=== PATIENT | male | born 1945 | race Caucasian/White ===

== ENCOUNTER → 2017-02-07 | Outpatient (CLI) | payer MEDICARE, OTHER ==
[~2017-02-07] VITALS: Ht 190.5 cm; Wt 95.3 kg
[~2017-02-07] MED LIST: HYDR12CA PO; LISI-538 PO; NS 1,000 ML IV SCH
--- NOTE | 2017-02-07 14:47 | ROOR ---
Patient Name: Juanpablo Koo Procedure Date: 02/07/2017 2:27 PM Date of : 1945 Age: 71 Room: [facility] Gender: Male Note Status: Finalized Procedure: Colonoscopy to Cecum Indications: High risk colon cancer surveillance: Personal history of colonic polyps, High risk colon cancer surveillance: Personal history of adenoma with villous component, Last colonoscopy: 2010 Providers: Deni Zamora MD Referring MD: Dinora MAY DO Requesting Provider: Medicines: Monitored Anesthesia Care Complications: No immediate complications. Procedure: Pre-Anesthesia Assessment: - The heart rate, respiratory rate, oxygen saturations, blood pressure, adequacy of pulmonary ventilation, and response to care were monitored throughout the procedure. The Colonoscope was introduced through the anus and advanced to the cecum, identified by appendiceal orifice and ileocecal valve. The colonoscopy was performed without difficulty. The patient tolerated the procedure well. The quality of the bowel preparation was excellent. Findings: The perianal and digital rectal examinations were normal. Non-bleeding internal hemorrhoids were found during retroflexion. The hemorrhoids were small and Grade I (internal hemorrhoids that do not prolapse). Multiple small and large-mouthed diverticula were found in the recto-sigmoid colon, sigmoid colon and descending colon. The exam was otherwise without abnormality on direct and retroflexion views. Impression: - Non-bleeding internal hemorrhoids. - Diverticulosis in the recto-sigmoid colon, in the sigmoid colon and in the descending colon. - The examination was otherwise normal on direct and retroflexion views. - No specimens collected. - The exam was otherwise normal to the cecum. Recommendation: - Patient has a contact number available for emergencies. The signs and symptoms of potential delayed complications were discussed with the patient. Return to normal activities tomorrow. Written discharge instructions were provided to the patient. - High fiber diet. - Discharge patient to home. - Continue present medications. - Repeat colonoscopy in 5 years for surveillance. - Return to referring physician. - The findings and recommendations were discussed with the patient's family. Deni Zamora MD Deni Zamora MD 02/07/2017 2:46:43 PM This report has been signed electronically. Number of Addenda: 0 Note Initiated On: 02/07/2017 2:27 PM Estimated Blood Loss: Estimated blood loss: none.
[2017-02-07 15:05] VITALS: BP 156/78
== END ==
LOC: M OPP 13:40
PROVIDERS: ATTEND Internal Medicine Gastroenterology
DX: Z12.11 Encounter for screening for malignant neoplasm of colon (principal); Z86.010 Personal history of colon polyps; K64.0 First degree hemorrhoids; K57.30 Diverticulosis of large intestine without perforation or abscess without bleeding; Z79.899 Other long term (current) drug therapy
CPT/HCPCS: 99156; 99157; G0105

== ENCOUNTER → 2020-06-24 | Outpatient (REF) | payer MEDICARE, OTHER ==
[~2020-06-24] MED LIST changes: -NS 1,000 ML IV SCH
== END ==
LOC: M SMT 10:29
PROVIDERS: ATTEND Nurse Practitioner Family
DX: N39.0 Urinary tract infection, site not specified (principal)

== ENCOUNTER → 2020-08-05 | Outpatient (CLI) | payer MEDICARE, OTHER ==
--- NOTE | 2020-08-12 13:11 | REPPI ---
TRANSRECTAL PROSTATE ULTRASOUND WITH ULTRASOUND GUIDANCE FOR PROSTATE BIOPSY HISTORY: Elevated prostate-specific antigen (PSA). TECHNIQUE: Transrectal prostate ultrasound is performed. FINDINGS: Prostate measures 4.8 x 3.7 x 5.3 cm for a total volume of 49.4 mL. Echotexture is heterogeneous. There are a few scattered tiny cysts and calcifications. There is a hypoechoic nodule in the mid posterior gland measuring 6 x 9 x 5 mm. Seminal vesicles appear symmetrical. Ultrasound guidance was provided for Dr. Heller who performed ultrasound- guided biopsy of the prostate. [facility]
== END ==
LOC: M SMT PRO 08:30
PROVIDERS: ATTEND Urology
DX: C61 Malignant neoplasm of prostate (principal)
CPT/HCPCS: 55700; 76872; G0416

== ENCOUNTER → 2020-11-10 | Outpatient (REF) | payer MEDICARE, OTHER | LOC: M PLALAB 14:01 | PROVIDERS: ATTEND Urology | DX: C61 Malignant neoplasm of prostate (principal) ==

== ENCOUNTER → 2021-02-09 | Outpatient (REF) | payer MEDICARE, OTHER ==
[~2021-02-09] MED LIST changes: -LISI-538 PO; +LISI20TA33 PO
== END ==
LOC: M PLALAB 13:34 → M SMT 13:34
PROVIDERS: ATTEND Urology
DX: C61 Malignant neoplasm of prostate (principal)

== ENCOUNTER → 2021-03-03 | Outpatient (CLI) | payer MEDICARE, OTHER ==
--- NOTE | 2021-03-03 13:11 | REPPI ---
INDICATION: elevated PSA. Prostate cancer. COMPARISON: None. TECHNIQUE: Sonographic guidance. Transrectal prostate sonography.. FINDINGS: Glandular dimensions are measured at 4.3 x 3.8 x 5.4 cm with a calculated glandular volume of 45.0 ml. Transrectal sonographic guidance is provided to Dr. Heller who performed trans rectal ultrasound guided needle biopsy procedure. IMPRESSION: Transrectal prostate sonographic measurements and ultrasound guidance as above. <Electronically signed by Jorge Vasquez > 03/03/21 [id number]
== END ==
LOC: M SMT PRO 11:25
PROVIDERS: ATTEND Urology
DX: C61 Malignant neoplasm of prostate (principal)
CPT/HCPCS: 55700; 76942; G0416

== ENCOUNTER → 2021-05-28 | Outpatient (CLI) | payer MEDICARE, OTHER ==
[2021-05-28 10:37] LABS: BASO % 0.4 % (0.0-1.0); EOS # 0.2 10^3/uL (0.0-0.5); EOS % 3.2 % (0.0-3.0); HEMOGLOBIN 12.4 g/dl (13.5-17.5); LYMPH # 0.9 10^3/uL (1.5-5.0); LYMPH % 18.9 % (24.0-44.0); MEAN CORPUSCULAR HEMOGLOBIN 30.6 pg (27.0-33.0); MEAN CORPUSCULAR HGB CONC 33.5 g/dl (32.0-36.5); MEAN CORPUSCULAR VOLUME 91.4 fl (80.0-96.0); MONO # 0.5 10^3/uL (0.0-0.8); MONO % 10.1 % (2.0-8.0); NEUTROPHILS # 3.3 10^3/uL (1.5-8.5); NEUTROPHILS % 66.6 % (36.0-66.0); PLATELET COUNT, AUTOMATED 141 10^3/uL (150-450); RED BLOOD COUNT 4.05 10^6/uL (4.30-6.10)
[2021-05-28 11:18] LABS: ALBUMIN 3.8 GM/DL (3.2-5.2); ALT/SGPT 26 U/L (12-78); BILIRUBIN,TOTAL 0.7 MG/DL (0.2-1.0); BLOOD UREA NITROGEN 21 MG/DL (7-18); CALCIUM LEVEL 8.9 MG/DL (8.8-10.2); CARBON DIOXIDE LEVEL 29 MEQ/L (21-32); CHLORIDE LEVEL 103 MEQ/L (98-107); CHOLESTEROL LEVEL 208 MG/DL (<200); CHOLESTEROL RISK RATIO 3.354 (<5); CREATININE FOR GFR 1.01 MG/DL (0.70-1.30); FREE T4 0.89 NG/DL (0.76-1.46); GLOMERULAR FILTRATION RATE > 60.0 (>42); GLUCOSE, FASTING 101 MG/DL (70-100); HDL CHOLESTEROL 62 MG/DL (>40); LDL CHOLESTEROL 126 MG/DL (<100); NON-HDL-C 146 MG/DL; POTASSIUM SERUM 4.3 MEQ/L (3.5-5.1); SODIUM LEVEL 138 MEQ/L (136-145); TOTAL PROTEIN 6.4 GM/DL (6.4-8.2); TRIGLYCERIDES LEVEL 101 MG/DL (<150)
[2021-05-29 23:08] LABS: PSA % FREE 13.9 % (.); PSA FREE 1.32 ng/mL; PSA TOTAL 9.5 ng/mL (0.0-4.0)
== END ==
LOC: M PLALAB 08:34
PROVIDERS: ATTEND Family Medicine
DX: I10 Essential (primary) hypertension (principal); Z79.899 Other long term (current) drug therapy

== ENCOUNTER → 2021-09-15 | Outpatient (CLI) | payer MEDICARE, OTHER | LOC: M PLALAB 14:23 | PROVIDERS: ATTEND Urology | DX: C61 Malignant neoplasm of prostate (principal) ==

== ENCOUNTER → 2021-11-03 | Outpatient (CLI) | payer MEDICARE, OTHER | LOC: M PLALAB 10:51 | PROVIDERS: ATTEND Urology | DX: C61 Malignant neoplasm of prostate (principal) ==

== ENCOUNTER → 2021-11-20 | Outpatient (CLI) | payer MEDICARE, OTHER ==
[~2021-11-20] MED LIST changes: +PROHANCE 279.3MG/ML 15ML VIAL As Ordered ONE; +PROHANCE 279.3MG/ML 5ML VIAL As Ordered ONE
== END ==
LOC: M PLARAD 07:42 → M RAD 08:53
PROVIDERS: ATTEND Urology
DX: R97.20 Elevated prostate specific antigen [PSA] (principal)
CPT/HCPCS: 72197; A9576

== ENCOUNTER → 2021-11-24 | Outpatient (REF) | payer MEDICARE, OTHER ==
[~2021-11-24] MED LIST changes: -PROHANCE 279.3MG/ML 15ML VIAL As Ordered ONE; -PROHANCE 279.3MG/ML 5ML VIAL As Ordered ONE
== END ==
LOC: M SMT PRO 11:01
PROVIDERS: ATTEND Urology
DX: C61 Malignant neoplasm of prostate (principal)
CPT/HCPCS: 55700; 76942; G0416

== ENCOUNTER → 2021-12-04 | Outpatient (CLI) | payer MEDICARE, OTHER ==
[2021-12-04 15:41] LABS: BASO % 0.2 % (0.0-1.0); EOS # 0.1 10^3/uL (0.0-0.5); EOS % 2.9 % (0.0-3.0); HEMATOCRIT 37.3 % (42.0-52.0); HEMOGLOBIN 12.5 g/dl (13.5-17.5); LYMPH # 1.4 10^3/uL (1.5-5.0); LYMPH % 27.7 % (24.0-44.0); MEAN CORPUSCULAR HEMOGLOBIN 29.8 pg (27.0-33.0); MEAN CORPUSCULAR HGB CONC 33.5 g/dl (32.0-36.5); MONO # 0.4 10^3/uL (0.0-0.8); MONO % 7.1 % (2.0-8.0); NEUTROPHILS % 61.1 % (36.0-66.0); PLATELET COUNT, AUTOMATED 170 10^3/uL (150-450); RED BLOOD COUNT 4.19 10^6/uL (4.30-6.10); WHITE BLOOD COUNT 4.9 10^3/uL (4.0-10.0)
[2021-12-04 16:09] LABS: PERCENT SATURATION 25.3 % (19.7-50.0)
[2021-12-04 16:17] LABS: FOLATE 12.4 NG/ML
== END ==
LOC: M PLALAB 13:35
PROVIDERS: ATTEND Physician Assistant
DX: D64.9 Anemia, unspecified (principal); Z79.899 Other long term (current) drug therapy

== ENCOUNTER → 2022-02-15 | Outpatient (CLI) | payer MEDICARE, OTHER ==
[2022-02-15 13:12] LABS: HEMATOCRIT 39.8 % (42.0-52.0); HEMOGLOBIN 13.9 g/dl (13.5-17.5); MEAN CORPUSCULAR HEMOGLOBIN 30.8 pg (27.0-33.0); MEAN CORPUSCULAR HGB CONC 34.9 g/dl (32.0-36.5); MEAN CORPUSCULAR VOLUME 88.1 fl (80.0-96.0); PLATELET COUNT, AUTOMATED 133 10^3/uL (150-450); RED BLOOD COUNT 4.52 10^6/uL (4.30-6.10); WHITE BLOOD COUNT 4.9 10^3/uL (4.0-10.0)
[2022-02-15 13:23] LABS: INR 0.98; PROTHROMBIN TIME 13.4 SECONDS (12.7-14.5)
[2022-02-15 13:24] LABS: PARTIAL THROMBOPLASTIN TIME 32.5 SECONDS (25.9-37.0)
[2022-02-15 13:51] LABS: BLOOD UREA NITROGEN 16 MG/DL (7-18); CALCIUM LEVEL 9.3 MG/DL (8.8-10.2); CARBON DIOXIDE LEVEL 30 MEQ/L (21-32); CHLORIDE LEVEL 104 MEQ/L (98-107); CREATININE FOR GFR 0.81 MG/DL (0.70-1.30); GLOMERULAR FILTRATION RATE > 60.0 (>42); GLUCOSE, FASTING 88 MG/DL (70-100); POTASSIUM SERUM 4.7 MEQ/L (3.5-5.1); SODIUM LEVEL 139 MEQ/L (136-145)
== END ==
LOC: M PLALAB 11:42
PROVIDERS: ATTEND Urology
DX: C61 Malignant neoplasm of prostate (principal); Z79.01 Long term (current) use of anticoagulants

== ENCOUNTER → 2022-02-19 | Outpatient (CLI) | payer MEDICARE, OTHER | LOC: M LABSMTC 09:13 | PROVIDERS: ATTEND Anesthesiology | DX: Z01.812 Encounter for preprocedural laboratory examination (principal); Z20.822 Contact with and (suspected) exposure to COVID-19 ==

== ENCOUNTER 2022-02-24 06:03 | Inpatient (IN) | payer MEDICARE, OTHER ==
[2022-02-24] VITALS (11 sets, daily range): BP systolic 119–154; BP diastolic 62–76
[~2022-02-24] VITALS: Ht 190.5 cm; Wt 93.9 kg
[~2022-02-24 06:03] MED LIST changes: +HEPARIN SOD (PORCINE) 5000UNITS/ML 1ML VIAL/SYRINGE SQ ONE; +LR 1,000 ML IV ONE; +ceFAZolin SOD 2 GM in IV 1 EA IV ONE
[2022-02-24] MEDS ORDERED: ACETAMINOPHEN 1000MG 100ML IV BTL (OFIRMEV) (J0131 PER 10MG) As Ordered ONE (07:09)
[2022-02-24] MEDS ORDERED: dexameTHASONE 4 MG/ML 1ML VIAL (J1100 PER 1MG) As Ordered ONE (07:09)
[2022-02-24] MEDS ORDERED: ONDANSETRON 4MG/2ML VIAL As Ordered ONE (07:09)
[2022-02-24] MEDS ORDERED: propofoL 200 MG/20 ML VIAL As Ordered ONE (07:09)
[2022-02-24] MEDS ORDERED: SUGAMMADEX SODIUM 500 MG/5 ML VIAL (BRIDION) As Ordered ONE (07:09)
[2022-02-24] MEDS ORDERED: ROCURONIUM BROMIDE 50 MG/5 ML VIAL As Ordered ONE ×2 (07:09→08:32)
[2022-02-24] MEDS ORDERED: KETAMINE INJ 500 MG/5 ML VIAL As Ordered ONE (07:10)
[2022-02-24] MEDS ORDERED: HYDROmorphone HCL 2MG/ML 1ML VIAL As Ordered ONE (07:10)
[2022-02-24] MEDS ORDERED: MIDAZOLAM INJ 2MG/2ML VIAL (J2250 PER 1MG) As Ordered ONE (07:11)
[2022-02-24] MEDS ORDERED: fentaNYL 100 MCG/2 ML INJECTION As Ordered ONE (07:11)
[2022-02-24] MEDS ORDERED: BUPIVACAINE HCL 0.25% 30ML VIAL As Ordered ONE (07:12)
[2022-02-24] MEDS ORDERED: LIDOCAINE 1% SDV 30ML VIAL As Ordered ONE (07:12)
[2022-02-24] MEDS ORDERED: LIDOCAINE 5% OINT 30GM TUBE As Ordered ONE (07:15)
[2022-02-24] MEDS ORDERED: LIDOCAINE 2% 100MG/5ML SDV (FOR ANES.) As Ordered ONE (07:18)
[2022-02-24] MEDS ORDERED: PERCOCET 5MG/325MG TAB PO PRN ×3 (07:30→12:50)
[2022-02-24] MEDS ORDERED: ACETAMINOPHEN TAB 650MG DOSE (2X325MG) PO PRN (07:30)
[2022-02-24] MEDS ORDERED: ONDANSETRON 4MG/2ML VIAL IV PRN ×2 (07:30→12:50)
[2022-02-24] MEDS ORDERED: ePHEDrine SULFATE 25 MG/5 ML(5MG/ML) SYRINGE As Ordered ONE (08:13)
[2022-02-24 12:19] LABS: HEMATOCRIT 38.2 % (42.0-52.0); HEMOGLOBIN 13.3 g/dl (13.5-17.5); MEAN CORPUSCULAR HEMOGLOBIN 30.2 pg (27.0-33.0); MEAN CORPUSCULAR HGB CONC 34.8 g/dl (32.0-36.5); MEAN CORPUSCULAR VOLUME 86.6 fl (80.0-96.0); PLATELET COUNT, AUTOMATED 138 10^3/uL (150-450); RED BLOOD COUNT 4.41 10^6/uL (4.30-6.10)
[2022-02-24 12:49] LABS: CALCIUM LEVEL 8.6 MG/DL (8.8-10.2); CREATININE FOR GFR 1.32 MG/DL (0.70-1.30); GLOMERULAR FILTRATION RATE 56.3 (>42); POTASSIUM SERUM 4.8 MEQ/L (3.5-5.1)
[2022-02-24] MEDS ORDERED: LR 1,000 ML IV SCH (12:50)
[2022-02-24] MEDS ORDERED: METOCLOPRAMIDE INJ 10MG/2ML VIAL (J2765 PER 1) IV PRN (12:50)
[2022-02-24] MEDS ORDERED: fentaNYL 100 MCG/2 ML INJECTION IV PRN (12:50)
[2022-02-24] MEDS ORDERED: VITA500T41 PO (14:03)
[2022-02-24] MEDS ORDERED: LISI40TA4 PO (14:03)
[2022-02-24] MEDS ORDERED: HOME MED LIST COMPLETE! XX SCH (14:05)
[2022-02-24] MEDS: DOCUSATE SODIUM 100MG CAPSULE PO SCH ×2 (16:04→20:28)
[2022-02-24] MEDS: HEPARIN SOD (PORCINE) 5000UNITS/ML 1ML VIAL/SYRINGE SC SCH ×2 (16:14→20:29)
[2022-02-24] MEDS: ceFAZolin SOD 1 GM in D5W MINI-BAG PLUS 50 ML IV SCH (16:14)
[2022-02-24] MEDS: NS 1,000 ML IV SCH (16:14)
[2022-02-25] MEDS: ceFAZolin SOD 1 GM in D5W MINI-BAG PLUS 50 ML IV SCH (00:21)
[2022-02-25 02:00] VITALS: BP 130/68
[2022-02-25] MEDS: NS 1,000 ML IV SCH (04:49)
[2022-02-25 05:11] LABS: HEMATOCRIT 35.2 % (42.0-52.0); HEMOGLOBIN 12.2 g/dl (13.5-17.5); MEAN CORPUSCULAR HEMOGLOBIN 30.3 pg (27.0-33.0); MEAN CORPUSCULAR HGB CONC 34.7 g/dl (32.0-36.5); MEAN CORPUSCULAR VOLUME 87.6 fl (80.0-96.0); PLATELET COUNT, AUTOMATED 137 10^3/uL (150-450); RED BLOOD COUNT 4.02 10^6/uL (4.30-6.10); WHITE BLOOD COUNT 7.3 10^3/uL (4.0-10.0)
[2022-02-25 05:30] LABS: BLOOD UREA NITROGEN 16 MG/DL (7-18); CALCIUM LEVEL 8.4 MG/DL (8.8-10.2); CARBON DIOXIDE LEVEL 33 MEQ/L (21-32); CHLORIDE LEVEL 106 MEQ/L (98-107); CREATININE FOR GFR 0.94 MG/DL (0.70-1.30); GLOMERULAR FILTRATION RATE > 60.0 (>42); GLUCOSE, FASTING 98 MG/DL (70-100); POTASSIUM SERUM 4.4 MEQ/L (3.5-5.1); SODIUM LEVEL 139 MEQ/L (136-145)
[2022-02-25 06:00] VITALS: BP 131/68
[2022-02-25] MEDS: HEPARIN SOD (PORCINE) 5000UNITS/ML 1ML VIAL/SYRINGE SC SCH ×2 (06:06→13:33)
[2022-02-25] MEDS: DOCUSATE SODIUM 100MG CAPSULE PO SCH (08:42)
[2022-02-25 10:00] VITALS: BP 131/68
[2022-02-25 14:00] VITALS: BP 131/68
[2022-02-25 14:09] LABS: CREATININE BF 0.8 MG/DL (NOT ESTABLISHED); SOURCE, BODY FLUID CREATININE PERITONEAL
[2022-02-25] MEDS ORDERED: BACT800T5 PO (15:02)
[2022-02-25] MEDS ORDERED: PERCOCET PO (15:02)
[2022-02-25] MEDS ORDERED: COLA100C5 PO (15:02)
== END 2022-02-25 16:00 | disposition home or self-care (01) | DRG 708 ==
LOC: M OR 06:03 → M MS5PR 13:20
PROVIDERS: ADMIT Urology; ATTEND Urology
PROC: 07BC4ZZ Excision of Pelvis Lymphatic, Percutaneous Endoscopic Approach (ICD-10-PCS; 2022-02-24)
PROC: 8E0W4CZ Robotic Assisted Procedure of Trunk Region, Percutaneous Endoscopic Approach (ICD-10-PCS; 2022-02-24)
PROC: 0VT04ZZ Resection of Prostate, Percutaneous Endoscopic Approach (ICD-10-PCS; principal; 2022-02-24 07:30)
DX: C61 Malignant neoplasm of prostate (principal)

== ENCOUNTER → 2022-03-19 | Outpatient (CLI) | payer MEDICARE, OTHER ==
[~2022-03-19] MED LIST changes: +BACT800T5 PO; +COLA100C5 PO; -HEPARIN SOD (PORCINE) 5000UNITS/ML 1ML VIAL/SYRINGE SQ ONE; +LISI40TA4 PO; -LR 1,000 ML IV ONE; +PERCOCET PO; +VITA500T41 PO; -ceFAZolin SOD 2 GM in IV 1 EA IV ONE
== END ==
LOC: M PLALAB 14:40
PROVIDERS: ATTEND Urology
DX: C61 Malignant neoplasm of prostate (principal)

== ENCOUNTER 2022-04-17 12:53 | Inpatient (IN) | payer MEDICARE, OTHER ==
[~2022-04-17] VITALS: Ht 190.5 cm; Wt 102.2 kg
[2022-04-17] MEDS ORDERED: NS 1,000 ML IV ONE (13:35)
[2022-04-17] MEDS ORDERED: ONDANSETRON 4MG 2ML VIAL IV ONE (13:35)
[2022-04-17] MEDS ORDERED: METOCLOPRAMIDE INJ 10MG/2ML VIAL (J2765 PER 1) IV ONE (13:50)
[2022-04-17 14:25] LABS: HEMATOCRIT 34.9 % (42.0-52.0); HEMOGLOBIN 12.4 g/dl (13.5-17.5); MEAN CORPUSCULAR HEMOGLOBIN 31.1 pg (27.0-33.0); MEAN CORPUSCULAR HGB CONC 35.5 g/dl (32.0-36.5); MEAN CORPUSCULAR VOLUME 87.5 fl (80.0-96.0); PLATELET COUNT, AUTOMATED 100 10^3/uL (150-450); RED BLOOD COUNT 3.99 10^6/uL (4.30-6.10); WHITE BLOOD COUNT 24.8 10^3/uL (4.0-10.0)
[2022-04-17] MEDS ORDERED: NS 1,800 ML in IV 1 EA IV ONE (14:45)
[2022-04-17 14:54] LABS: ALBUMIN 2.8 GM/DL (3.2-5.2); BILIRUBIN,DIRECT 0.3 MG/DL (0.0-0.2); BILIRUBIN,TOTAL 1.1 MG/DL (0.2-1.0); CALCIUM LEVEL 7.6 MG/DL (8.8-10.2); CREATININE FOR GFR 2.24 MG/DL (0.70-1.30); EOSINOPHILS 1 % (0-3); GLOMERULAR FILTRATION RATE 30.6 (>42); LYMPHOCYTES 1 % (16-44); METAMYELOCYTES 3 % (0-0); MONOCYTES 3 % (0-5); MYELOCYTES 1 % (0-0); NEUTROPHILS 63 % (28-66); POTASSIUM SERUM 3.9 MEQ/L (3.5-5.1); TOTAL PROTEIN 5.6 GM/DL (6.4-8.2)
[2022-04-17 14:55] LABS: GIANT PLATELETS 1+; MICROCYTOSIS 1+; OVALOCYTES 1+; PLATELET ESTIMATE DECREASED (NORMAL)
[2022-04-17] MEDS ORDERED: cefTRIAXone SOD 2 GM in D5W MINI-BAG PLUS 50 ML IV ONE (15:30)
[2022-04-17 16:27] LABS: RSV AMPLIFICATION NEGATIVE (NEGATIVE)
[2022-04-17] MEDS ORDERED: ACETAMINOPHEN 325 MG TAB PO ONE (17:00)
[2022-04-17] MEDS ORDERED: VITA500T40 PO (17:15)
[2022-04-17] MEDS ORDERED: HOME MED LIST COMPLETE! XX SCH (17:15)
[2022-04-17] MEDS ORDERED: ONDANSETRON 4MG 2ML VIAL IV PRN (17:30)
[2022-04-17] MEDS ORDERED: ACETAMINOPHEN TAB 650MG DOSE (2X325MG) PO PRN (17:30)
[2022-04-17] MEDS ORDERED: VANCOMYCIN HCL 1,000 MG, VIAL MATE ADAPTER 1 EACH in NS 250 ML IV ONE (18:00)
[2022-04-17] MEDS: NS 1,000 ML IV SCH (18:50)
[2022-04-17 22:34] VITALS: BP 129/67
[2022-04-18] MEDS: NS 1,000 ML IV SCH ×4 (04:00→21:45)
[2022-04-18 06:00] VITALS: BP 99/62
[2022-04-18 07:08] LABS: HEMATOCRIT 30.2 % (42.0-52.0); HEMOGLOBIN 10.5 g/dl (13.5-17.5); MEAN CORPUSCULAR HEMOGLOBIN 30.2 pg (27.0-33.0); MEAN CORPUSCULAR HGB CONC 34.8 g/dl (32.0-36.5); MEAN CORPUSCULAR VOLUME 86.8 fl (80.0-96.0); RED BLOOD COUNT 3.48 10^6/uL (4.30-6.10); WHITE BLOOD COUNT 13.6 10^3/uL (4.0-10.0)
[2022-04-18] MEDS ORDERED: NS 1,000 ML IV ONE (07:25)
[2022-04-18 07:33] LABS: ALBUMIN 2.2 GM/DL (3.2-5.2); BILIRUBIN,TOTAL 0.8 MG/DL (0.2-1.0); CALCIUM LEVEL 7.3 MG/DL (8.8-10.2); CREATININE FOR GFR 1.9 MG/DL (0.70-1.30); POTASSIUM SERUM 3.8 MEQ/L (3.5-5.1); TOTAL PROTEIN 5.2 GM/DL (6.4-8.2)
[2022-04-18 07:35] VITALS: BP 122/78
[2022-04-18] MEDS ORDERED: ONDANSETRON 4MG 2ML VIAL IV ONE (07:35)
[2022-04-18 07:45] LABS: PLATELET COUNT, AUTOMATED 57 10^3/uL (150-450)
[2022-04-18 07:49] LABS: EOSINOPHILS 2 % (0-3); METAMYELOCYTES 2 % (0-0); MONOCYTES 3 % (0-5); MYELOCYTES 3 % (0-0); NEUTROPHILS 68 % (28-66)
[2022-04-18 07:50] LABS: PLATELET ESTIMATE DECREASED (NORMAL)
[2022-04-18 07:51] LABS: MICROCYTOSIS 1+; OVALOCYTES 1+
[2022-04-18] MEDS ORDERED: VANCOMYCIN HCL 1,000 MG, VIAL MATE ADAPTER 1 EACH in NS 250 ML IV SCH (08:00)
[2022-04-18] MEDS: cefTRIAXone SOD 1 GM in D5W MINI-BAG PLUS 50 ML IV SCH (08:46)
[2022-04-18] MEDS ORDERED: LEVO750T13 PO (09:20)
[2022-04-18] MEDS ORDERED: NORV5TAB PO (09:20)
[2022-04-18] MEDS ORDERED: BACITAB PO (09:20)
[2022-04-18] MEDS ORDERED: SELF1KIT MC (09:20)
[2022-04-18 21:12] LABS: HEMATOCRIT 29.4 % (42.0-52.0); HEMOGLOBIN 10.4 g/dl (13.5-17.5); MEAN CORPUSCULAR HEMOGLOBIN 30.8 pg (27.0-33.0); MEAN CORPUSCULAR HGB CONC 35.4 g/dl (32.0-36.5); RED BLOOD COUNT 3.38 10^6/uL (4.30-6.10); WHITE BLOOD COUNT 11.7 10^3/uL (4.0-10.0)
[2022-04-18 21:17] LABS: PLATELET COUNT, AUTOMATED 49 10^3/uL (150-450)
[2022-04-18 21:39] LABS: CALCIUM LEVEL 7.4 MG/DL (8.8-10.2); CREATININE FOR GFR 1.83 MG/DL (0.70-1.30); GLOMERULAR FILTRATION RATE 38.6 (>42); POTASSIUM SERUM 3.6 MEQ/L (3.5-5.1)
[2022-04-18 21:49] LABS: LYMPHOCYTES 2 % (16-44); METAMYELOCYTES 1 % (0-0); MONOCYTES 2 % (0-5); MYELOCYTES 1 % (0-0); NEUTROPHILS 82 % (28-66)
[2022-04-18 21:50] LABS: PLATELET ESTIMATE DECREASED (NORMAL)
[2022-04-18 22:00] VITALS: BP 126/70
[2022-04-19] MEDS: NS 1,000 ML IV SCH ×2 (04:25→14:13)
[2022-04-19 06:15] LABS: HEMATOCRIT 30.7 % (42.0-52.0); HEMOGLOBIN 10.7 g/dl (13.5-17.5); MEAN CORPUSCULAR HEMOGLOBIN 30.6 pg (27.0-33.0); MEAN CORPUSCULAR HGB CONC 34.9 g/dl (32.0-36.5); MEAN CORPUSCULAR VOLUME 87.7 fl (80.0-96.0); PLATELET COUNT, AUTOMATED 50 10^3/uL (150-450)
[2022-04-19 06:39] LABS: BILIRUBIN,TOTAL 0.8 MG/DL (0.2-1.0); CALCIUM LEVEL 7.5 MG/DL (8.8-10.2); CREATININE FOR GFR 1.68 MG/DL (0.70-1.30); GLOMERULAR FILTRATION RATE 42.6 (>42); POTASSIUM SERUM 4.1 MEQ/L (3.5-5.1); TOTAL PROTEIN 4.8 GM/DL (6.4-8.2)
[2022-04-19 06:50] LABS: MONOCYTES 1 % (0-5); NEUTROPHILS 91 % (28-66); PLATELET ESTIMATE DECREASED (NORMAL)
[2022-04-19] MEDS ORDERED: MULTIVITAMINS/MINERALS THERAP 1 TAB PO SCH (09:00)
[2022-04-19] MEDS ORDERED: FOLIC ACID 1 MG TAB PO SCH (09:00)
[2022-04-19] MEDS ORDERED: THIAMINE 100 MG TAB PO SCH (09:00)
[2022-04-19] MEDS: cefTRIAXone SOD 1 GM in D5W MINI-BAG PLUS 50 ML IV SCH (09:00)
[2022-04-19] MEDS ORDERED: NS 1,000 ML IV ONE ×3 (09:10→11:15)
[2022-04-19] MEDS ORDERED: LORazepam 2 MG/ML VIAL IV STA (11:12)
[2022-04-19 11:13] VITALS: BP 186/104
[2022-04-19] MEDS ORDERED: PROMETHAZINE 25MG/ML 1ML VIAL IV ONE (11:15)
[2022-04-19] MEDS ORDERED: MORPHINE 2 MG/ML 1ML VIAL IV ONE (11:15)
[2022-04-19] MEDS ORDERED: PIPERACILLIN/TAZOBACTAM SOD 4.5 GM in D5W MINI-BAG PLUS 50 ML IV ONE (11:15)
[2022-04-19] MEDS ORDERED: cloNIDine 0.1MG TABLET PO ONE (11:20)
[2022-04-19] MEDS ORDERED: LORazepam 2 MG TAB PO PRN (11:25)
[2022-04-19] MEDS ORDERED: atenoloL 50 MG TAB PO ONE (11:35)
[2022-04-19 11:39] LABS: HEMATOCRIT 35.3 % (42.0-52.0); HEMOGLOBIN 11.7 g/dl (13.5-17.5); MEAN CORPUSCULAR HEMOGLOBIN 29.8 pg (27.0-33.0); MEAN CORPUSCULAR HGB CONC 33.1 g/dl (32.0-36.5); MEAN CORPUSCULAR VOLUME 90.1 fl (80.0-96.0); RED BLOOD COUNT 3.92 10^6/uL (4.30-6.10); WHITE BLOOD COUNT 9.3 10^3/uL (4.0-10.0)
[2022-04-19 11:41] LABS: PLATELET COUNT, AUTOMATED 71 10^3/uL (150-450)
[2022-04-19 11:46] VITALS: BP 132/90
[2022-04-19 12:01] LABS: ERYTHROCYTE SEDIMENTATION RATE 63 mm/hr (0-20)
[2022-04-19] MEDS: NITROGLYCERIN 2% OINT 1 GM *U/D* PKT TOP SCH ×2 (12:02→18:00)
[2022-04-19 12:04] LABS: CK-MB VALUE MASS 2.4 NG/ML (<3.6); MB/CK RELATIVE INDEX 0.98 (< OR =4)
[2022-04-19 12:14] LABS: LYMPHOCYTES 8 % (16-44); NEUTROPHILS 89 % (28-66); PLATELET ESTIMATE DECREASED (NORMAL)
[2022-04-19] MEDS ORDERED: ACETAMINOPHEN TAB 650MG DOSE (2X325MG) PO ONE (13:05)
[2022-04-19 13:30] LABS: ALBUMIN 2.3 GM/DL (3.2-5.2); BILIRUBIN,TOTAL 0.9 MG/DL (0.2-1.0); CALCIUM LEVEL 7.9 MG/DL (8.8-10.2); CREATININE FOR GFR 1.72 MG/DL (0.70-1.30); GLOMERULAR FILTRATION RATE 41.5 (>42); TOTAL PROTEIN 5.4 GM/DL (6.4-8.2)
[2022-04-19] MEDS ORDERED: VANCOMYCIN HCL 1,000 MG, VIAL MATE ADAPTER 1 EACH in NS 250 ML IV SCH (13:50)
[2022-04-19 14:00] VITALS: BP 140/90
[2022-04-19 14:44] LABS: CALCIUM LEVEL 7.2 MG/DL (8.8-10.2); CREATININE FOR GFR 1.74 MG/DL (0.70-1.30); GLOMERULAR FILTRATION RATE 40.9 (>42); POTASSIUM SERUM 3.6 MEQ/L (3.5-5.1)
[2022-04-19] MEDS ORDERED: VANCOMYCIN HCL 750 MG, VIAL MATE ADAPTER 1 EACH in NS 250 ML IV SCH ×2 (15:00→16:00)
[2022-04-19 15:20] VITALS: BP 105/54
[2022-04-19] MEDS: PIPERACILLIN/TAZOBACTAM SOD 3.375 GM in D5W MINI-BAG PLUS 50 ML IV SCH (18:43)
[2022-04-19 20:49] VITALS: BP 107/66
[2022-04-19] MEDS: atenoloL 50 MG TAB PO SCH (21:00)
[2022-04-19] MEDS: APIXABAN 5 MG TAB (ELIQUIS) PO SCH (21:04)
[2022-04-20] VITALS (11 sets, daily range): BP systolic 108–131; BP diastolic 58–82
[2022-04-20] MEDS: PIPERACILLIN/TAZOBACTAM SOD 3.375 GM in D5W MINI-BAG PLUS 50 ML IV SCH ×3 (01:40→13:31)
[2022-04-20] MEDS: NS 1,000 ML IV SCH ×3 (04:39→19:10)
[2022-04-20] MEDS: NITROGLYCERIN 2% OINT 1 GM *U/D* PKT TOP SCH ×5 (05:42→23:01)
[2022-04-20 07:58] LABS: BASO # 0.1 10^3/uL (0.0-0.2); BASO % 0.7 % (0.0-1.0); EOS % 0.2 % (0.0-3.0); HEMATOCRIT 29.6 % (42.0-52.0); LYMPH # 0.6 10^3/uL (1.5-5.0); LYMPH % 4.7 % (24.0-44.0); MEAN CORPUSCULAR HEMOGLOBIN 30.5 pg (27.0-33.0); MEAN CORPUSCULAR HGB CONC 33.8 g/dl (32.0-36.5); MEAN CORPUSCULAR VOLUME 90.2 fl (80.0-96.0); MONO # 0.5 10^3/uL (0.0-0.8); MONO % 3.8 % (2.0-8.0); NEUTROPHILS # 10.7 10^3/uL (1.5-8.5); NEUTROPHILS % 87.3 % (36.0-66.0); PLATELET COUNT, AUTOMATED 46 10^3/uL (150-450); RED BLOOD COUNT 3.28 10^6/uL (4.30-6.10); WHITE BLOOD COUNT 12.2 10^3/uL (4.0-10.0)
[2022-04-20] MEDS: APIXABAN 5 MG TAB (ELIQUIS) PO SCH (08:21)
[2022-04-20] MEDS: atenoloL 50 MG TAB PO SCH ×2 (08:31→21:08)
[2022-04-20 08:41] LABS: ALBUMIN 1.8 GM/DL (3.2-5.2); BILIRUBIN,TOTAL 0.8 MG/DL (0.2-1.0); CALCIUM LEVEL 7.3 MG/DL (8.8-10.2); CREATININE FOR GFR 1.88 MG/DL (0.70-1.30); GLOMERULAR FILTRATION RATE 37.4 (>42); POTASSIUM SERUM 3.8 MEQ/L (3.5-5.1); TOTAL PROTEIN 4.5 GM/DL (6.4-8.2)
[2022-04-20] MEDS ORDERED: LevoFLOXacin 750 MG TABLET PO SCH (09:00)
[2022-04-20] MEDS ORDERED: VANCOMYCIN HCL 750 MG, VIAL MATE ADAPTER 1 EACH in NS 250 ML IV SCH (11:00)
[2022-04-20] MEDS ORDERED: VANCOMYCIN HCL 500 MG in D5W MINI-BAG PLUS 100 ML IV SCH (12:00)
[2022-04-20] MEDS ORDERED: ISOVUE-300 61% 50ML VIAL As Ordered ONE (17:08)
[2022-04-20] MEDS ORDERED: LIDOCAINE 2% 100MG/5ML SDV (FOR ANES.) As Ordered ONE (17:40)
[2022-04-20] MEDS ORDERED: MIDAZOLAM INJ 2MG/2ML VIAL (J2250 PER 1MG) As Ordered ONE (17:41)
[2022-04-20] MEDS ORDERED: fentaNYL 100 MCG/2 ML INJECTION As Ordered ONE (17:41)
[2022-04-20] MEDS ORDERED: propofoL 200 MG/20 ML VIAL As Ordered ONE (17:41)
[2022-04-20] MEDS ORDERED: cefTRIAXone SOD 2 GM in D5W MINI-BAG PLUS 50 ML IV SCH (18:00)
[2022-04-20] MEDS ORDERED: LIDOCAINE 2% 5ML JELLY UROJET As Ordered ONE (18:04)
[2022-04-20] MEDS ORDERED: cefTRIAXone SOD 1GM VIAL (J0696 PER 250MG) As Ordered ONE (18:22)
[2022-04-21] VITALS: BP 104/65
[2022-04-21 04:00] VITALS: BP 112/70
[2022-04-21] MEDS: NITROGLYCERIN 2% OINT 1 GM *U/D* PKT TOP SCH (05:07)
[2022-04-21 05:38] LABS: BASO # 0.1 10^3/uL (0.0-0.2); BASO % 0.6 % (0.0-1.0); EOS % 0.2 % (0.0-3.0); HEMATOCRIT 29.7 % (42.0-52.0); HEMOGLOBIN 10.1 g/dl (13.5-17.5); LYMPH # 0.6 10^3/uL (1.5-5.0); LYMPH % 5.7 % (24.0-44.0); MEAN CORPUSCULAR HEMOGLOBIN 30.7 pg (27.0-33.0); MEAN CORPUSCULAR VOLUME 90.3 fl (80.0-96.0); MONO # 0.7 10^3/uL (0.0-0.8); MONO % 6.2 % (2.0-8.0); NEUTROPHILS % 83.7 % (36.0-66.0); RED BLOOD COUNT 3.29 10^6/uL (4.30-6.10); WHITE BLOOD COUNT 10.7 10^3/uL (4.0-10.0)
[2022-04-21 05:39] LABS: PLATELET COUNT, AUTOMATED 49 10^3/uL (150-450)
[2022-04-21] MEDS: NS 1,000 ML IV SCH (05:39)
[2022-04-21 05:54] LABS: ALBUMIN 1.7 GM/DL (3.2-5.2); BILIRUBIN,TOTAL 0.5 MG/DL (0.2-1.0); CALCIUM LEVEL 7.7 MG/DL (8.8-10.2); CREATININE FOR GFR 1.94 MG/DL (0.70-1.30); GLOMERULAR FILTRATION RATE 36.1 (>42); POTASSIUM SERUM 3.4 MEQ/L (3.5-5.1); TOTAL PROTEIN 4.7 GM/DL (6.4-8.2)
[2022-04-21] MEDS ORDERED: POTASSIUM CHLORIDE 10MEQ SR TABLET PO ONE (07:35)
[2022-04-21 08:00] VITALS: BP 135/75
[2022-04-21 08:28] VITALS: BP 135/75
[2022-04-21] MEDS: atenoloL 50 MG TAB PO SCH (08:28)
[2022-04-21] MEDS ORDERED: FUROSEMIDE 20MG/2ML VIAL (J1940) IV ONE (08:50)
[2022-04-21] MEDS ORDERED: CEFD300C41 PO (09:03)
[2022-04-21] MEDS ORDERED: ASPI81TA26 PO (09:03)
[2022-04-21] MEDS ORDERED: ATEN50TA2 PO (09:03)
[2022-05-07] MEDS ORDERED: LISI40TA4 PO (12:50)
== END 2022-04-21 11:26 | disposition home or self-care (01) | DRG 854 ==
LOC: M ED 12:53 → M ED INP 17:23 → M MSPAV 22:34 → M PCU 04-19 15:04
PROVIDERS: ADMIT General Practice; ATTEND Internal Medicine Nephrology
PROC: 0T778DZ Dilation of Left Ureter with Intraluminal Device, Via Natural or Artificial Opening Endoscopic (ICD-10-PCS; principal; 2022-04-20 14:48)
DX: A41.59 Other Gram-negative sepsis (principal); N17.9 Acute kidney failure, unspecified; N39.0 Urinary tract infection, site not specified; N13.6 Pyonephrosis; E87.1 Hypo-osmolality and hyponatremia; E87.2 Acidosis; R65.20 Severe sepsis without septic shock; D64.9 Anemia, unspecified; I16.0 Hypertensive urgency; I48.91 Unspecified atrial fibrillation; B96.1 Klebsiella pneumoniae [K. pneumoniae] as the cause of diseases classified elsewhere; D69.6 Thrombocytopenia, unspecified; R74.01 Elevation of levels of liver transaminase levels; I10 Essential (primary) hypertension; Z85.46 Personal history of malignant neoplasm of prostate; Z79.899 Other long term (current) drug therapy

== ENCOUNTER → 2022-05-06 | Outpatient (CLI) | payer MEDICARE, OTHER ==
[~2022-05-06] MED LIST changes: +ASPI81TA26 PO; +ATEN50TA2 PO; +BACITAB PO; +CEFD300C41 PO; +LEVO750T13 PO; +NORV5TAB PO; +SELF1KIT MC; +VITA500T40 PO
[2022-05-06 16:51] LABS: HEMATOCRIT 28.2 % (42.0-52.0); HEMOGLOBIN 9.2 g/dl (13.5-17.5); MEAN CORPUSCULAR HEMOGLOBIN 29.7 pg (27.0-33.0); MEAN CORPUSCULAR HGB CONC 32.6 g/dl (32.0-36.5); PLATELET COUNT, AUTOMATED 146 10^3/uL (150-450)
[2022-05-06 17:06] LABS: APPEARANCE, URINE HAZY (CLEAR); BACTERIA, URINE AUTO 1+ (NEGATIVE); BILIRUBIN, URINE AUTO NEGATIVE (NEGATIVE); BLOOD, URINE BLOOD 3+ (NEGATIVE); COLOR, URINE YELLOW (YELLOW); GLUCOSE, URINE (UA) AUTO NEGATIVE (NEGATIVE); KETONE, URINE AUTO NEGATIVE (NEGATIVE); LEUKOCYTE ESTERASE, URINE AUTO 3+ (NEGATIVE); MUCUS, URINE SMALL (NEGATIVE); NITRITE, URINE AUTO NEGATIVE (NEGATIVE); PROTEIN, URINE AUTO 1+ mg/dL (NEGATIVE); RBC, URINE AUTO 33 /HPF (0-3); SQUAMOUS EPITHELIAL CELL UR AU 0 /HPF (0-6); UROBILINOGEN, URINE AUTO 0.2 mg/dL (0.0-2.0); WBC, URINE AUTO 121 /HPF (0-3)
[2022-05-06 17:06] LABS: BLOOD UREA NITROGEN 15 MG/DL (7-18); CALCIUM LEVEL 8.9 MG/DL (8.8-10.2); CARBON DIOXIDE LEVEL 34 MEQ/L (21-32); CHLORIDE LEVEL 105 MEQ/L (98-107); CREATININE FOR GFR 1.24 MG/DL (0.70-1.30); GLOMERULAR FILTRATION RATE > 60.0 (>42); GLUCOSE, FASTING 91 MG/DL (70-100); POTASSIUM SERUM 4.2 MEQ/L (3.5-5.1); SODIUM LEVEL 139 MEQ/L (136-145)
[2022-05-06 17:23] LABS: INR 1.06; PROTHROMBIN TIME 14.2 SECONDS (12.7-14.5)
[2022-05-06 17:24] LABS: PARTIAL THROMBOPLASTIN TIME 36.5 SECONDS (25.9-37.0)
== END ==
LOC: M PLALAB 13:15
PROVIDERS: ATTEND Nurse Practitioner Women's Health
DX: N20.0 Calculus of kidney (principal); Z79.01 Long term (current) use of anticoagulants

== ENCOUNTER → 2022-05-11 | Outpatient (CLI) | payer MEDICARE, OTHER | LOC: M LABSMTC 09:24 | PROVIDERS: ATTEND Anesthesiology | DX: Z01.812 Encounter for preprocedural laboratory examination (principal) ==

== ENCOUNTER 2022-05-13 10:41 | Day surgery (SDC) | payer MEDICARE, OTHER ==
[~2022-05-13] VITALS: Ht 190.5 cm; Wt 89.4 kg
[~2022-05-13 10:41] MED LIST changes: +ceFAZolin SOD 2 GM in IV 1 EA IV ONE
[2022-05-13] MEDS ORDERED: LR 1,000 ML IV SCH ×2 (10:50→16:30)
[2022-05-13] MEDS ORDERED: ISOVUE-300 61% 50ML VIAL As Ordered ONE (14:35)
[2022-05-13] MEDS ORDERED: fentaNYL 100 MCG/2 ML INJECTION As Ordered ONE (14:37)
[2022-05-13] MEDS ORDERED: dexameTHASONE 4 MG/ML 1ML VIAL (J1100 PER 1MG) As Ordered ONE (14:37)
[2022-05-13] MEDS ORDERED: ONDANSETRON 4MG 2ML VIAL As Ordered ONE (14:37)
[2022-05-13] MEDS ORDERED: propofoL 200 MG/20 ML VIAL As Ordered ONE (14:37)
[2022-05-13] MEDS ORDERED: LIDOCAINE 2% INJ 100 MG/5 ML SYRINGE As Ordered ONE (14:38)
[2022-05-13] MEDS ORDERED: ROCURONIUM BROMIDE 50 MG/5 ML VIAL As Ordered ONE (14:38)
[2022-05-13] MEDS ORDERED: ACETAMINOPHEN 1000MG 100ML IV BTL (OFIRMEV) (J0131 PER 10MG) As Ordered ONE (15:11)
[2022-05-13] MEDS ORDERED: HYDROMORPHONE HCL 0.5 MG/ 0.5 ML SYRINGE (J1170 PER 1) IV PRN (16:30)
[2022-05-13] MEDS ORDERED: oxyCODONE 5MG TAB PO PRN (16:30)
[2022-05-13] MEDS ORDERED: fentaNYL 100 MCG/2 ML INJECTION IV PRN (16:30)
[2022-05-13] MEDS ORDERED: ONDANSETRON 4MG 2ML VIAL IV PRN (16:30)
[2022-05-13 17:25] VITALS: BP 169/83
[2022-05-13] MEDS ORDERED: PERCOCET 5MG/325MG TAB PO PRN (18:30)
[2022-05-20 14:08] LABS: Size 7x5 mm (.); Uric Acid 100 % (.)
== END 2022-05-13 17:30 | disposition home or self-care (01) ==
LOC: M SDC 10:41
PROVIDERS: ATTEND Urology
DX: N20.2 Calculus of kidney with calculus of ureter (principal); Q62.5 Duplication of ureter; C61 Malignant neoplasm of prostate; I10 Essential (primary) hypertension; E78.5 Hyperlipidemia, unspecified; E07.9 Disorder of thyroid, unspecified; I48.0 Paroxysmal atrial fibrillation; N17.9 Acute kidney failure, unspecified; D51.9 Vitamin B12 deficiency anemia, unspecified; D50.9 Iron deficiency anemia, unspecified; D69.6 Thrombocytopenia, unspecified; Z87.442 Personal history of urinary calculi; Z87.440 Personal history of urinary (tract) infections
CPT/HCPCS: 52356; 74420; 82365; 93005; C1769; C1894; C2617; J0131; J0690; J1100; J2405; J3010; Q9967

== ENCOUNTER → 2022-05-21 | Outpatient (CLI) | payer MEDICARE, OTHER ==
[~2022-05-21] MED LIST changes: -ceFAZolin SOD 2 GM in IV 1 EA IV ONE
== END ==
LOC: M PLALAB 10:43
PROVIDERS: ATTEND Urology
DX: C61 Malignant neoplasm of prostate (principal)

== ENCOUNTER → 2022-08-25 | Outpatient (CLI) | payer MEDICARE, OTHER ==
[~2022-08-25] MED LIST changes: +LEVO1TAB40 PO; -LEVO750T13 PO
== END ==
LOC: M PLALAB 10:47
PROVIDERS: ATTEND Urology
DX: C61 Malignant neoplasm of prostate (principal)

== ENCOUNTER → 2022-10-04 | Outpatient (CLI) | payer MEDICARE, OTHER | LOC: M PLALAB 10:48 | PROVIDERS: ATTEND Urology | DX: C61 Malignant neoplasm of prostate (principal) ==

== ENCOUNTER → 2022-11-04 | Outpatient (CLI) | payer MEDICARE, OTHER ==
[~2022-11-04] MED LIST changes: +ASPI-226; +ATEN50TA2
== END ==
LOC: M ONCR 12:39
PROVIDERS: ATTEND General Practice
DX: C61 Malignant neoplasm of prostate (principal); R32 Unspecified urinary incontinence; Z80.9 Family history of malignant neoplasm, unspecified; Z79.899 Other long term (current) drug therapy

== ENCOUNTER → 2022-11-22 | Outpatient (CLI) | payer MEDICARE, OTHER | LOC: M PLALAB 13:11 | PROVIDERS: ATTEND Urology | DX: C61 Malignant neoplasm of prostate (principal) ==

== ENCOUNTER → 2023-01-11 | Outpatient (CLI) | payer MEDICARE, OTHER ==
[~2023-01-11] MED LIST changes: +AMLO1TAB24 PO; +ASPI-226 PO
== END ==
LOC: M LABSMTC 07:40
PROVIDERS: ATTEND Anesthesiology
DX: Z01.818 Encounter for other preprocedural examination (principal); Z11.52 Encounter for screening for COVID-19

== ENCOUNTER → 2023-01-12 | Day surgery (SDC) | payer MEDICARE, OTHER ==
[~2023-01-12] VITALS: Ht 190.5 cm; Wt 93.8 kg
[~2023-01-12] MED LIST changes: +LIDOCAINE 2% 100MG/5ML SDV (FOR ANES.) As Ordered ONE; +NS 1,000 ML IV ONE; +propofoL 500 MG/50 ML VIAL As Ordered ONE
[2023-01-12 08:53] VITALS: BP 137/79
== END | disposition home or self-care (01) ==
LOC: M OPP 06:43
PROVIDERS: ATTEND Internal Medicine Gastroenterology
DX: Z12.11 Encounter for screening for malignant neoplasm of colon (principal); Z86.010 Personal history of colon polyps; D12.6 Benign neoplasm of colon, unspecified; K64.0 First degree hemorrhoids; K57.30 Diverticulosis of large intestine without perforation or abscess without bleeding; I10 Essential (primary) hypertension; Z79.899 Other long term (current) drug therapy; Z87.442 Personal history of urinary calculi; Z90.79 Acquired absence of other genital organ(s)

== ENCOUNTER → 2023-02-04 | Outpatient (RCR) | payer MEDICARE, OTHER ==
[~2023-02-04] MED LIST changes: -LIDOCAINE 2% 100MG/5ML SDV (FOR ANES.) As Ordered ONE; -NS 1,000 ML IV ONE; -propofoL 500 MG/50 ML VIAL As Ordered ONE
== END ==
LOC: M ONCR 01-06 13:45
PROVIDERS: ATTEND General Practice
DX: C61 Malignant neoplasm of prostate (principal)

== ENCOUNTER 2023-03-04 09:24 | Outpatient (RCR) | payer MEDICARE, OTHER | END 2023-03-06 | LOC: M ONCR 09:24 | PROVIDERS: ATTEND General Practice | DX: C61 Malignant neoplasm of prostate (principal) ==

== ENCOUNTER 2023-03-18 09:21 | Outpatient (RCR) | payer MEDICARE, OTHER | END 2023-04-06 | LOC: M ONCR 09:21 | PROVIDERS: ATTEND General Practice | DX: C61 Malignant neoplasm of prostate (principal) ==

== ENCOUNTER → 2023-06-07 | Outpatient (CLI) | payer MEDICARE, OTHER ==
[2023-06-07 16:40] LABS: BASO % 0.3 % (0.0-1.0); EOS # 0.1 10^3/uL (0.0-0.5); EOS % 1.8 % (0.0-3.0); HEMOGLOBIN 11.6 g/dl (13.5-17.5); LYMPH # 0.4 10^3/uL (1.5-5.0); LYMPH % 12.1 % (24.0-44.0); MEAN CORPUSCULAR HEMOGLOBIN 31.2 pg (27.0-33.0); MEAN CORPUSCULAR HGB CONC 34.1 g/dl (32.0-36.5); MEAN CORPUSCULAR VOLUME 91.4 fl (80.0-96.0); MONO # 0.3 10^3/uL (0.0-0.8); MONO % 8.3 % (2.0-8.0); NEUTROPHILS # 2.6 10^3/uL (1.5-8.5); NEUTROPHILS % 76.3 % (36.0-66.0); PLATELET COUNT, AUTOMATED 116 10^3/uL (150-450); RED BLOOD COUNT 3.72 10^6/uL (4.30-6.10); WHITE BLOOD COUNT 3.4 10^3/uL (4.0-10.0)
[2023-06-07 16:42] LABS: ALBUMIN 3.7 G/DL (3.2-5.2); ALKALINE PHOSPHATASE 89 U/L (46-116); ALT/SGPT 11 U/L (7.0-40); AST/SGOT 9 U/L (<34); BILIRUBIN,TOTAL 0.7 MG/DL (0.3-1.2); BLOOD UREA NITROGEN 20 MG/DL (9-23); CALCIUM LEVEL 8.5 MG/DL (8.3-10.6); CARBON DIOXIDE LEVEL 26 MMOL/L (20-31); CHLORIDE LEVEL 107 MMOL/L (98-107); CHOLESTEROL LEVEL 176 MG/DL (<200); CHOLESTEROL RISK RATIO 2.72 (<5); FERRITIN 342.5 NG/ML (10.5-307.3); GLOMERULAR FILTRATION RATE > 60.0 (>42); GLUCOSE, FASTING 88 MG/DL (74-106); HDL CHOLESTEROL 64.7 MG/DL (>40); IRON (FE) 57 UG/DL (65-175); LDL CHOLESTEROL 99.1 MG/DL (<100); NON-HDL-C 111.3 MG/DL; PERCENT SATURATION 22.9 % (19.7-50.0); SODIUM LEVEL 142 MMOL/L (136-145); TOTAL IRON BINDING CAPACITY 249 UG/DL (250-425); TOTAL PROTEIN 5.9 G/DL (5.7-8.2); TRIGLYCERIDES LEVEL 61 MG/DL (<150)
[2023-06-07 16:44] LABS: FOLATE 16.4 NG/ML (>5.4); VITAMIN B12 LEVEL 239 PG/ML (211-911)
== END ==
LOC: M PLALAB 11:58
PROVIDERS: ATTEND Family Medicine
DX: D61.818 Other pancytopenia (principal); E78.5 Hyperlipidemia, unspecified; D50.9 Iron deficiency anemia, unspecified; I10 Essential (primary) hypertension

== ENCOUNTER → 2023-06-21 | Outpatient (CLI) | payer MEDICARE, OTHER | LOC: M ONCR 09:16 | PROVIDERS: ATTEND General Practice | DX: C61 Malignant neoplasm of prostate (principal); Z92.3 Personal history of irradiation; N39.3 Stress incontinence (female) (male); Z71.2 Person consulting for explanation of examination or test findings; Z79.899 Other long term (current) drug therapy | CPT/HCPCS: 36415; 84153; G0463 ==

== ENCOUNTER → 2023-07-19 | Outpatient (CLI) | payer MEDICARE, OTHER ==
[~2023-07-19] MED LIST changes: +MYRB50TA
== END ==
LOC: M RAD 08:04
PROVIDERS: ATTEND Internal Medicine Hematology & Oncology
DX: D61.818 Other pancytopenia (principal)

== ENCOUNTER → 2023-09-20 | Outpatient (CLI) | payer MEDICARE, OTHER ==
[~2023-09-20] MED LIST changes: -CEFD300C41 PO; +CEFD300C42 PO; +LIDOCAINE 1% MDV 20ML VIAL As Ordered ONE
[2023-09-20 08:08] VITALS: TEMP 97.3
[2023-09-20 08:35] LABS: BASO % 0.3 % (0.0-1.0); EOS # 0.1 10^3/uL (0.0-0.5); EOS % 2.8 % (0.0-3.0); HEMATOCRIT 34.8 % (42.0-52.0); LYMPH # 0.5 10^3/uL (1.5-5.0); LYMPH % 15.4 % (24.0-44.0); MEAN CORPUSCULAR HEMOGLOBIN 30.6 pg (27.0-33.0); MEAN CORPUSCULAR HGB CONC 34.5 g/dl (32.0-36.5); MEAN CORPUSCULAR VOLUME 88.8 fl (80.0-96.0); MONO # 0.2 10^3/uL (0.0-0.8); MONO % 7.5 % (2.0-8.0); NEUTROPHILS # 2.3 10^3/uL (1.5-8.5); NEUTROPHILS % 72.1 % (36.0-66.0); PLATELET COUNT, AUTOMATED 110 10^3/uL (150-450); RED BLOOD COUNT 3.92 10^6/uL (4.30-6.10); WHITE BLOOD COUNT 3.2 10^3/uL (4.0-10.0)
[2023-09-20 08:48] LABS: INR 1.01
[2023-09-20 09:20] VITALS: BP 160/92; O2SAT 99
== END ==
LOC: M IRPRO 08:00
PROVIDERS: ATTEND Internal Medicine Hematology & Oncology
DX: D61.818 Other pancytopenia (principal)

== ENCOUNTER → 2023-12-12 | Outpatient (CLI) | payer MEDICARE, OTHER ==
[~2023-12-12] MED LIST changes: +CEFD1CAP9 PO; -CEFD300C42 PO; -LIDOCAINE 1% MDV 20ML VIAL As Ordered ONE
[2023-12-12 14:43] LABS: BASO % 0.6 % (0.0-1.0); EOS % 1.2 % (0.0-3.0); HEMATOCRIT 36.3 % (42.0-52.0); LYMPH # 0.5 10^3/uL (1.5-5.0); LYMPH % 15.1 % (24.0-44.0); MEAN CORPUSCULAR HEMOGLOBIN 30.2 pg (27.0-33.0); MEAN CORPUSCULAR HGB CONC 33.1 g/dl (32.0-36.5); MEAN CORPUSCULAR VOLUME 91.2 fl (80.0-96.0); MONO # 0.3 10^3/uL (0.0-0.8); NEUTROPHILS # 2.5 10^3/uL (1.5-8.5); NEUTROPHILS % 73.6 % (36.0-66.0); PLATELET COUNT, AUTOMATED 109 10^3/uL (150-450); RED BLOOD COUNT 3.98 10^6/uL (4.30-6.10); WHITE BLOOD COUNT 3.4 10^3/uL (4.0-10.0)
[2023-12-12 15:07] LABS: ALBUMIN 3.7 G/DL (3.2-5.2); ALKALINE PHOSPHATASE 93 U/L (46-116); ALT/SGPT 17 U/L (7.0-40); AST/SGOT 13 U/L (<34); BILIRUBIN,TOTAL 0.8 MG/DL (0.3-1.2); BLOOD UREA NITROGEN 21 MG/DL (9-23); CALCIUM LEVEL 8.7 MG/DL (8.3-10.6); CARBON DIOXIDE LEVEL 29 MMOL/L (20-31); CHLORIDE LEVEL 107 MMOL/L (98-107); CHOLESTEROL LEVEL 169 MG/DL (<200); CHOLESTEROL RISK RATIO 2.85 (<5); CREATININE FOR GFR 1.23 MG/DL (0.70-1.30); GLOMERULAR FILTRATION RATE > 60.0 (>42); GLUCOSE, FASTING 96 MG/DL (74-106); HDL CHOLESTEROL 59.1 MG/DL (>40); IRON (FE) 86 UG/DL (65-175); LDL CHOLESTEROL 93.5 MG/DL (<100); NON-HDL-C 109.9 MG/DL; PERCENT SATURATION 33.2 % (19.7-50.0); POTASSIUM SERUM 4.8 MMOL/L (3.5-5.1); SODIUM LEVEL 141 MMOL/L (136-145); THYROID STIMULATING HORMONE 2.737 uIU/ML (0.55-4.78); TOTAL IRON BINDING CAPACITY 259 UG/DL (250-425); TOTAL PROTEIN 6.1 G/DL (5.7-8.2); TRIGLYCERIDES LEVEL 82 MG/DL (<150)
[2023-12-12 15:08] LABS: FERRITIN 318.1 NG/ML (10.5-307.3); FOLATE 14.3 NG/ML (>5.4)
[2023-12-12 15:09] LABS: FREE T4 1.12 NG/DL (0.89-1.76); VITAMIN B12 LEVEL 340 PG/ML (211-911)
[2023-12-13 12:09] LABS: PSA TOTAL <0.1 ng/mL (0.0-4.0)
== END ==
LOC: M PLALAB 10:18
PROVIDERS: ATTEND Family Medicine
DX: I10 Essential (primary) hypertension (principal); D51.9 Vitamin B12 deficiency anemia, unspecified; C61 Malignant neoplasm of prostate; R97.20 Elevated prostate specific antigen [PSA]

== ENCOUNTER → 2023-12-20 | Outpatient (CLI) | payer MEDICARE, OTHER | LOC: M PLALAB 10:24 | PROVIDERS: ATTEND Urology | DX: C61 Malignant neoplasm of prostate (principal) ==

== ENCOUNTER → 2024-06-11 | Outpatient (CLI) | payer MEDICARE, OTHER ==
[2024-06-11 15:30] LABS: BASO % 0.5 % (0.0-1.0); EOS # 0.1 10^3/uL (0.0-0.5); EOS % 1.2 % (0.0-3.0); HEMATOCRIT 35.2 % (42.0-52.0); HEMOGLOBIN 11.9 g/dl (13.5-17.5); LYMPH # 0.6 10^3/uL (1.5-5.0); LYMPH % 13.9 % (24.0-44.0); MEAN CORPUSCULAR HEMOGLOBIN 30.7 pg (27.0-33.0); MEAN CORPUSCULAR HGB CONC 33.8 g/dl (32.0-36.5); MONO # 0.3 10^3/uL (0.0-0.8); MONO % 6.6 % (2.0-8.0); NEUTROPHILS # 3.1 10^3/uL (1.5-8.5); NEUTROPHILS % 74.4 % (36.0-66.0); PLATELET COUNT, AUTOMATED 124 10^3/uL (150-450); RED BLOOD COUNT 3.87 10^6/uL (4.30-6.10); WHITE BLOOD COUNT 4.1 10^3/uL (4.0-10.0)
[2024-06-11 15:52] LABS: IRON (FE) 68 UG/DL (65-175)
[2024-06-11 15:53] LABS: ALBUMIN 3.8 G/DL (3.2-5.2); ALKALINE PHOSPHATASE 83 U/L (46-116); ALT/SGPT 18 U/L (7.0-40); AST/SGOT 10 U/L (<34); BILIRUBIN,TOTAL 0.7 MG/DL (0.3-1.2); BLOOD UREA NITROGEN 21 MG/DL (9-23); CALCIUM LEVEL 8.5 MG/DL (8.3-10.6); CARBON DIOXIDE LEVEL 29 MMOL/L (20-31); CHLORIDE LEVEL 109 MMOL/L (98-107); CHOLESTEROL LEVEL 174 MG/DL (<200); CHOLESTEROL RISK RATIO 3.06 (<5); CREATININE FOR GFR 1.19 MG/DL (0.70-1.30); GLOMERULAR FILTRATION RATE > 60.0 (>42); GLUCOSE, FASTING 91 MG/DL (74-106); HDL CHOLESTEROL 56.7 MG/DL (>40); LDL CHOLESTEROL 99.1 MG/DL (<100); NON-HDL-C 117.3 MG/DL; PERCENT SATURATION 25.5 % (19.7-50.0); POTASSIUM SERUM 4.4 MMOL/L (3.5-5.1); SODIUM LEVEL 140 MMOL/L (136-145); TOTAL IRON BINDING CAPACITY 267 UG/DL (250-425); TOTAL PROTEIN 6.1 G/DL (5.7-8.2); TRIGLYCERIDES LEVEL 91 MG/DL (<150)
[2024-06-11 15:54] LABS: FERRITIN 345.1 NG/ML (10.5-307.3); VITAMIN B12 LEVEL 320 PG/ML (211-911)
[2024-06-11 16:00] LABS: FOLATE 16.3 NG/ML (>5.4)
[2024-06-12 11:08] LABS: PSA FREE 0.1 ng/mL; PSA TOTAL 0.3 ng/mL (< OR = 4.0)
== END ==
LOC: M PLALAB 10:51
PROVIDERS: ATTEND Family Medicine
DX: D61.818 Other pancytopenia (principal); E78.00 Pure hypercholesterolemia, unspecified; D50.9 Iron deficiency anemia, unspecified

== ENCOUNTER → 2024-06-20 | Outpatient (CLI) | payer MEDICARE, OTHER | LOC: M PLALAB 09:50 | PROVIDERS: ATTEND General Practice | DX: C61 Malignant neoplasm of prostate (principal) ==

== ENCOUNTER → 2024-06-21 | Outpatient (CLI) | payer MEDICARE, OTHER | LOC: M ONCR 08:45 | PROVIDERS: ATTEND General Practice | DX: C61 Malignant neoplasm of prostate (principal); Z92.3 Personal history of irradiation; Z79.899 Other long term (current) drug therapy; R97.21 Rising PSA following treatment for malignant neoplasm of prostate ==

== ENCOUNTER → 2024-09-17 | Outpatient (CLI) | payer MEDICARE, OTHER | LOC: M PLALAB 10:35 | PROVIDERS: ATTEND General Practice | DX: C61 Malignant neoplasm of prostate (principal) ==

== ENCOUNTER → 2024-09-21 | Outpatient (CLI) | payer MEDICARE, OTHER | LOC: M ONCR 08:47 | PROVIDERS: ATTEND General Practice | DX: C61 Malignant neoplasm of prostate (principal); R97.21 Rising PSA following treatment for malignant neoplasm of prostate; Z79.899 Other long term (current) drug therapy; Z90.79 Acquired absence of other genital organ(s); Z92.3 Personal history of irradiation ==

== ENCOUNTER → 2024-12-25 | Outpatient (CLI) | payer MEDICARE, OTHER | LOC: M ONCR 08:16 | PROVIDERS: ATTEND General Practice | DX: C61 Malignant neoplasm of prostate (principal); Z92.3 Personal history of irradiation; Z90.79 Acquired absence of other genital organ(s); R97.21 Rising PSA following treatment for malignant neoplasm of prostate | CPT/HCPCS: 36415; 84153; G0463 ==

== ENCOUNTER → 2025-03-19 | Outpatient (CLI) | payer MEDICARE, OTHER ==
[2025-03-19 11:30] LABS: HEMOGLOBIN 12.9 g/dl (13.5-17.5); MEAN CORPUSCULAR HEMOGLOBIN 30.6 pg (27.0-33.0); MEAN CORPUSCULAR HGB CONC 34.9 g/dl (32.0-36.5); MEAN CORPUSCULAR VOLUME 87.7 fl (80.0-96.0); PLATELET COUNT, AUTOMATED 112 10^3/uL (150-450); RED BLOOD COUNT 4.22 10^6/uL (4.30-6.10); WHITE BLOOD COUNT 3.4 10^3/uL (4.0-10.0)
[2025-03-19 12:01] LABS: CREATININE FOR GFR 1.38 MG/DL (0.70-1.30); GLOMERULAR FILTRATION RATE 52.3 (>42)
== END ==
LOC: M RAD 09:35
PROVIDERS: ATTEND Urology
DX: N39.3 Stress incontinence (female) (male) (principal); N36.42 Intrinsic sphincter deficiency (ISD)

== ENCOUNTER 2025-03-27 06:00 | Day surgery (SDC) | payer MEDICARE, OTHER ==
[~2025-03-27] VITALS: Ht 188 cm; Wt 93.9 kg
[2025-03-27] MEDS: LR 1,000 ML IV SCH (06:50)
[2025-03-27] MEDS ORDERED: ONDANSETRON 4MG 2ML VIAL As Ordered ONE (07:02)
[2025-03-27] MEDS ORDERED: LIDOCAINE 2% 100MG/5ML SDV (FOR ANES.) As Ordered ONE (07:02)
[2025-03-27] MEDS ORDERED: propofoL 200 MG/20 ML VIAL As Ordered ONE (07:02)
[2025-03-27] MEDS ORDERED: dexmedeTOMIDine (4MCG/ML)200MCG/50ML BTL (PRECEDEX) As Ordered ONE (07:14)
[2025-03-27] MEDS ORDERED: MIDAZOLAM INJ 2MG/2ML VIAL As Ordered ONE (07:18)
[2025-03-27] MEDS ORDERED: fentaNYL 100 MCG/2 ML INJECTION As Ordered ONE (07:18)
[2025-03-27] MEDS: ceFAZolin SOD 2 GM IV ONCE IV ONE (07:30)
[2025-03-27] MEDS ORDERED: GLYCOPYRROLATE INJ 0.2 MG/ML 2 ML VIAL As Ordered ONE (07:48)
[2025-03-27] MEDS: LIDOCAINE 2% 5ML JELLY UROJET As Ordered ONE (07:50)
[2025-03-27 09:27] VITALS: BP 122/61; TEMP 97.6; O2SAT 96
== END 2025-03-27 09:43 | disposition home or self-care (01) ==
LOC: M SDC 06:00
PROVIDERS: ATTEND Urology
DX: N36.42 Intrinsic sphincter deficiency (ISD) (principal); N39.3 Stress incontinence (female) (male); Z92.3 Personal history of irradiation; Z90.79 Acquired absence of other genital organ(s); I10 Essential (primary) hypertension; Z85.46 Personal history of malignant neoplasm of prostate; Z79.899 Other long term (current) drug therapy; Z90.89 Acquired absence of other organs
CPT/HCPCS: 51715; A4215; J0690; J1100; J1596; J2250; J2405; J3010; L8606

== ENCOUNTER → 2025-06-18 | Outpatient (CLI) | payer MEDICARE, OTHER ==
[~2025-06-18] MED LIST changes: +HYDR12.510 PO; -HYDR12CA PO; +LISI40TA10 PO; -LISI40TA4 PO
== END ==
LOC: M PLALAB 09:24
PROVIDERS: ATTEND General Practice
DX: C61 Malignant neoplasm of prostate (principal)

== ENCOUNTER → 2025-06-25 | Outpatient (CLI) | payer MEDICARE, OTHER | LOC: M ONCR 08:02 | PROVIDERS: ATTEND General Practice | DX: C61 Malignant neoplasm of prostate (principal); R97.21 Rising PSA following treatment for malignant neoplasm of prostate; Z79.899 Other long term (current) drug therapy; Z92.3 Personal history of irradiation ==

== ENCOUNTER → 2025-09-25 | Outpatient (CLI) | payer MEDICARE, OTHER | LOC: M ONCR 11:14 | PROVIDERS: ATTEND General Practice | DX: C61 Malignant neoplasm of prostate (principal); C79.51 Secondary malignant neoplasm of bone; Z92.3 Personal history of irradiation; R97.21 Rising PSA following treatment for malignant neoplasm of prostate; Z79.899 Other long term (current) drug therapy | CPT/HCPCS: 36415; 84153; G0463 ==

== ENCOUNTER 2025-09-30 10:42 | Outpatient (RCR) | payer MEDICARE, OTHER | END 2025-10-06 | LOC: M ONCR 10:42 | PROVIDERS: ATTEND General Practice | DX: Z51.0 Encounter for antineoplastic radiation therapy (principal); C79.51 Secondary malignant neoplasm of bone ==

== ENCOUNTER 2025-10-18 13:46 | Outpatient (RCR) | payer MEDICARE, OTHER | END 2025-11-06 | LOC: M ONCR 13:46 | PROVIDERS: ATTEND General Practice | DX: Z51.0 Encounter for antineoplastic radiation therapy (principal); C61 Malignant neoplasm of prostate ==